=== PATIENT | female | born 2000 | race Two or more races ===

== ENCOUNTER 2024-07-02 19:04 | Emergency (ER) | payer OTHER ==
[~2024-07-02] VITALS: Ht 152.4 cm; Wt 70.3 kg
[2024-07-02 21:46] LABS: HEMATOCRIT 38.3 % (36.0-45.00); HEMOGLOBIN 12.7 g/dL (12.0-15.00); MEAN CELL VOLUME 80.5 fL (80.00-100.00); MEAN CORPUSCULAR HEMOGLOBIN 26.6 pg (27.00-32.0); MEAN CORPUSCULAR HGB CONC 33.1 g/dl (32.0-36.0); PLATELET COUNT 286 K/uL (150-450); RED BLOOD COUNT 4.77 M/uL (4.00-6.00); RED CELL DISTRIBUTION WIDTH 15.4 % (11.5-14.5)
[2024-07-02 22:05] LABS: INR 1.15; PROTHROMBIN TIME 12.4 SECONDS (9.0-11.5)
[2024-07-02 22:14] LABS: D DIMER < 0.19 MG/L; PARTIAL THROMBOPLASTIN TIME 28.2 SECONDS (22.0-34.0)
== END 2024-07-02 22:31 | disposition home or self-care (01) ==
LOC: ER 19:06
PROVIDERS: General Practice
DX: M79.605 Pain in left leg (principal); Z88.5 Allergy status to narcotic agent; Z88.9 Allergy status to unspecified drugs, medicaments and biological substances